=== PATIENT | female | born 1990 | race Caucasian/White ===

== ENCOUNTER 2019-07-20 08:50 | Inpatient (IN) ==
[2019-07-20] MEDS ORDERED: PENICILLIN G POTASSIUM 3 MU in DEXTROSE 5% 100 ML IV PRN (10:04)
[2019-07-20] MEDS ORDERED: OXYTOCIN 30 UNITS/500 ML BAG IV PRN ×3 (10:04→17:41)
[2019-07-20 10:26] LABS: Hematocrit (blood only) 36.2 % (37-47); Hemoglobin 11.8 g/dL (12.0-16.0); Mean Corpuscular Hemoglobin 25.6 pg (25-34); Mean Corpuscular Volume 78.5 fL (80-100); Mean Platelet Volume 9.4 fL (7.4-10.4); Platelet Count 230 K/uL (130-400); RDW Coefficient of Variation 15.9 % (11.5-14.5); RDW Standard Deviation 45.7 fL (36.4-46.3); Red Blood Count 4.61 M/uL (4.2-5.4); White Blood Count 11.22 K/uL (4.8-10.8)
--- NOTE | 2019-07-20 10:28 | History & Physical Report ---
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 of Pre-E, obesity, anxiety Hx. of Pre-eclampsia - currently on ASA 81 mg - no SxS - BP: 118/94 and 129/80 - trace protein in urine - continue to monitor VS and SxS Induction - SVE 4cm/50%/-2 - good movement - category 1 tracing - GBS +, Blood Type A+ - Feels well today. Eating well, voiding well, ambulating well. - Pain well controlled. History of Present Illness Primary Care Provider: Sarbjit Esparza DO Cleo Barillas is presenting after feeling contractions 3-5 minutes apart, and noting bright red blood while wiping. She has had continued bright red blood with wiping but notes that it is a small amount. She brought up that she had lost her mucus plug last week. She denies losing her fluid. She is feeling good movement. She is in the room with her partner Gee who lives at home along with their daughter who is 3. She is planning on . She has a history of Pre-eclampsia that was diagnosed at around 37 weeks gestation. She did no have any headaches, RUQ pain, or vision changes during that . She did have some swelling. She states that she was diagnosed with elevated blood pressure. She takes Venlafaxine for anxiety. The dose was decreased on the Venlafaxine but did not have any problem with this medication change. She feels her anxiety is well controlled. She is feeling good movement. Allergies Allergy/AdvReac Type Severity Reaction Status Date / Time No Known Drug Allergies Allergy Unknown Verified 07/20/19 09:09 Home Medications Home Medications Medication Instructions Recorded Confirmed Type vit no.[id number] 1 tab PO DAILY 07/04/19 07/20/19 History [ Vitamin] venlafaxine 37.5 mg PO DAILY 07/04/19 07/20/19 History aspirin 81 mg tablet,delayed 81 mg PO DAILY 07/11/19 07/20/19 History release Patient History Medical History Skin problem dry skin Vitamin D deficiency Anxiety takes Effexor 37.5mg PO daily History of varicella as a child Hypertension gestational hypertension only Surgical History History of eye surgery muscle surgery to correct S/P wisdom tooth extraction as teenager Social History Preferred Language: Amharic Communication Ability: Effective Breaker Off Required: No Beliefs That Will Affect Care: None marital status: Current Living Situation: Spouse Current Living Situation Comment: lives with and daughter Feels Safe at Home: Yes Safety Concerns: Feels Safe At This Time Smoking Status: Never smoker Second Hand Exposure: No ; Hx Alcohol Use: No Hx Substance Use: No Review of Systems Denies fever, chills, sweats Denies shortness of breath, difficulty breathing, chest pain, palpitations, chest pressure. Denies breast pain. Denies dysuria. Denies headache, RUQ pain, vision changes. Physical Exam Physical Exam: General: Alert, oriented. No acute distress. Cardiac: Regular rate and rhythm, no murmurs/rubs/gallops. Respiratory: Clear to auscultation anterior and posteriorly, no wheezes/rales/rhonchi. No increased work of breathing. Symmetrical chest rise. No respiratory distress. Abdomen: Soft, nontender, nondistended. Bowel sounds present. Lower Extremities: No lower extremity edema or swelling. No deep calf pain. Wendi's negative bilaterally. SVE: 4 cm/ 50%/ -2 Results & Data Vital Signs (Past 12 Hours) Vital Signs Temp Pulse Resp BP 07/20/19 10:02 96 H 143/93 H 07/20/19 09:48 91 H 131/85 07/20/19 09:32 108 H 129/80 07/20/19 09:18 88 129/80 07/20/19 09:01 125 H 118/94 07/20/19 09:00 36.7 C 18 Monitoring External Monitor - Baseline rate: 150 - Variability: moderate - no late deceleration, no variable decelerations - Category 1 tracing Tocodynamometer - contractions q4-5 minutes - approx. 40 MVU's Resident Activity Tracking Resident Involvement: Resident Care Provided Care Provided: OB Delivery
[2019-07-20] MEDS ORDERED: PENICILLIN G POTASSIUM 6 MU in DEXTROSE 5% 250 ML IV ONE (10:30)
[2019-07-20 10:35] LABS: Mean Corpuscular Hgb Conc 32.6 g/dL (32-36)
[2019-07-20] MEDS: LACTATED RINGER'S 1,000 ML IV PRN ×2 (10:46→13:21)
[2019-07-20] MEDS ORDERED: fentaNYL citrate 100 MCG/2 ML VIAL ONE (12:52)
[2019-07-20] MEDS ORDERED: ePHEDrine sulfate 50 MG/ML AMP ONE (12:53)
[2019-07-20] MEDS ORDERED: BUPIVACAINE 0.25% 30 ML VIAL ONE (12:53)
[2019-07-20] MEDS ORDERED: fentaNYL 2MCG/ML ROPIV 1.25MG/ML 100 ML BAG EPI ONE (12:54)
--- NOTE | 2019-07-20 13:27 | Anesthesiology Consultation ---
Date of Service July 20, 2019 Assessment & Plan Chart Review Chart Review: Acceptable Risk for Surgery, Patient NOT seen in Pre Admission Testing and Acceptable Risk for Labor Epidural Consults Requested none ASA ASA3 Proposed Anesthesia Anesthesia Type: General and Labor Epidural Risk / Benefits Reviewed With: PT / POA / Parent / Guardian, Accepts Plan and Informed Consent Obtained History Height/Weight Height: 5 ft 7 in Weight: 122.924 kg Allergies Allergy/AdvReac Type Severity Reaction Status Date / Time No Known Drug Allergies Allergy Unknown Verified 07/20/19 09:09 Medications Home Medications Medication Instructions Recorded Confirmed Last Taken vit no.[id number] 1 tab PO DAILY 07/04/19 07/20/19 07/19/19 08:00 [ Vitamin] venlafaxine 37.5 mg PO DAILY 07/04/19 07/20/19 07/20/19 08:00 aspirin 81 mg tablet,delayed 81 mg PO DAILY 07/11/19 07/20/19 07/19/19 08:00 release Active Medications Generic Name Dose Route Start Last Admin Trade Name Mahesh PRN Reason Stop Dose Admin Lactated Ringer's 1,000 mls @ 125 mls/hr 07/20/19 10:04 07/20/19 13:21 Lr IV 07/22/19 10:03 999 mls/hr .Q8H PRN Administration L&D Protocol Protocol Oxytocin 30 units in 500 mls @ 4 mls/hr 07/20/19 11:48 07/20/19 12:45 Pitocin IV 07/22/19 11:47 0.24 units/hr .Q24H PRN 4 mls/hr Labor Induction/Augmentation Titration Protocol 0.24 UNITS/HR NPO Date Last Intake of Fluids: 07/20/19 Time Last Intake of Fluids: 07:15 Date Last Intake of Solids: 07/20/19 Time Last Intake of Solids: 07:15 Past Medical History Medical History Skin problem dry skin Vitamin D deficiency Anxiety takes Effexor 37.5mg PO daily History of varicella as a child Hypertension gestational hypertension only Exercise / Class Metabolic Activity III < 4 Walking/Shop/Light housework Past Family History Family History Other Diabetes Hypertension Past Surgical History Surgical History History of eye surgery muscle surgery to correct S/P wisdom tooth extraction as teenager Past Anesthesia History No Hx of Anesthesia Complications and No Family Hx of Anesthesia Complications History of PONV No Hx of PONV and No Hx of Motion Sickness Social History Smoking Status: Never smoker Hx Alcohol Use: No Hx Substance Use: No substance use type: does not use Physical Exam Vital Signs Last Vital Signs Temp 36.7 C 07/20/19 11:45 Pulse 88 07/20/19 13:19 Resp 16 07/20/19 11:45 BP 138/104 H 07/20/19 12:41 Pulse Ox 100 07/20/19 13:19 Constitutional + morbidly obese ENMT Mouth: no dentition abnormality Thyromental Distance: < 3.5 Finger Breadths Mallampati Class: II Neck normal visual inspection and trachea midline; neck extension not limited Respiratory normal respiratory effort Auscultation: lungs clear to auscultation bilaterally Cardiovascular Rate/Rhythm: regular rate and regular rhythm Heart Sounds: no murmur Musculoskeletal Spine: lumbar spine normal to inspection; normal cervical ROM Neurologic moves all extremities Motor/Sensory: no sensory deficit Psychiatric Orientation: alert and oriented x 3 Testing Laboratory Results 07/20/19 10:14
[2019-07-20] MEDS ORDERED: NALBUPHINE HCL INJ 10 MG/ML AMP IV PRN (13:51)
[2019-07-20] MEDS ORDERED: DiphenhydrAMINE HCL 50 MG/ML VIAL IV PRN (13:51)
[2019-07-20] MEDS ORDERED: NALOXONE HCL 1 MG in SODIUM CHLORIDE 0.9% 1000ML 1,000 ML IV PRN (13:51)
[2019-07-20] MEDS ORDERED: fentaNYL 2MCG/ML ROPIV 1.25MG/ML 100 ML BAG EPI PRN (13:51)
[2019-07-20] MEDS ORDERED: ONDANSETRON INJ 2 MG/ML 2 ML VIAL IV PRN (13:51)
[2019-07-20] MEDS ORDERED: PROMETHAZINE HCL 25 MG in SODIUM CHLORIDE 0.9% 50 ML IV PRN (13:51)
[2019-07-20] MEDS ORDERED: ePHEDrine sulfate 50 MG/ML AMP IV PRN (13:51)
[2019-07-20] MEDS ORDERED: NALOXONE HCL 0.4 MG/1 ML VIAL/CARP IV PRN (13:51)
--- NOTE | 2019-07-20 15:00 | Obstetrical Progress Note ---
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 of Pre-E in prior , obesity, and anxiety Induction - SVE: 5cm/80%/-2 - AROM at 2:50 PM - good movement - category 1 tracing - GBS +, Blood Type A+ - Feels well today. Eating well, voiding well, ambulating well. - Pain well controlled, epidural in place. Subjective Doing well, no questions or concerns. Membrane was ruptured at 2:50 PM. Mom feels good movement. Physical Exam Physical Exam: General: Alert, oriented. No acute distress. Respiratory: No increased work of breathing. Symmetric chest rise. No re spiratory distress SVE: 5/80/-2 Fetus: - Baseline: 150 BPM - Variability: moderate - no late or variable decelerations - Category 1 tracing Results & Data Vital Signs (Past 12 Hours) Vital Signs Temp Pulse Resp BP Pulse Ox 07/20/19 14:49 96 H 99 07/20/19 14:44 77 99 07/20/19 14:39 93 H 100 07/20/19 14:34 82 98 07/20/19 14:33 86 122/66 07/20/19 14:31 85 127/72 07/20/19 14:29 84 126/70 99 07/20/19 14:27 91 H 124/72 07/20/19 14:25 105 H 128/78 07/20/19 14:24 86 99 07/20/19 14:23 95 H 126/82 07/20/19 14:21 88 126/74 07/20/19 14:19 98 H 127/76 99 07/20/19 14:17 100 H 117/73 07/20/19 14:15 98 H 112/70 07/20/19 14:14 103 H 100 07/20/19 14:13 94 H 110/65 07/20/19 14:11 94 H 116/68 07/20/19 14:09 93 H 116/75 98 07/20/19 14:07 96 H 117/70 07/20/19 14:05 101 H 114/68 07/20/19 14:04 89 98 07/20/19 14:03 93 H 117/63 07/20/19 14:01 101 H 111/68 07/20/19 14:00 99 H 126/71 07/20/19 13:59 101 H 98 07/20/19 13:57 99 H 113/65 07/20/19 13:56 107 H 120/56 L 07/20/19 13:54 95 H 98 07/20/19 13:53 120 H 124/60 07/20/19 13:51 115 H 116/60 07/20/19 13:50 99 H 119/64 07/20/19 13:49 100 H 98 07/20/19 13:47 100 H 124/64 07/20/19 13:45 36.7 C 126/67 07/20/19 13:44 95 H 97 07/20/19 13:39 103 H 99 07/20/19 13:34 103 H 100 07/20/19 13:29 99 H 100 07/20/19 13:24 88 100 07/20/19 13:19 88 100 07/20/19 13:14 83 100 07/20/19 13:09 100 H 99 07/20/19 13:04 93 H 100 07/20/19 12:59 93 H 100 07/20/19 12:54 88 100 07/20/19 12:49 95 H 100 07/20/19 12:47 171 H 82 L 07/20/19 12:41 92 H 138/104 H 07/20/19 11:46 100 H 157/93 H 07/20/19 11:45 36.7 C 16 07/20/19 10:02 96 H 143/93 H 07/20/19 09:48 91 H 131/85 07/20/19 09:32 108 H 129/80 07/20/19 09:18 88 129/80 07/20/19 09:01 125 H 118/94 07/20/19 09:00 36.7 C 18 Resident Activity Tracking Resident Involvement: Resident Care Provided Care Provided: OB Delivery
[2019-07-20] MEDS ORDERED: SUPERCREAM 0.870% 15 GM JAR EXT PRN (17:41)
[2019-07-20] MEDS ORDERED: DIPHTHERIA/TETANUS/PERTUSSIS 0.5 ML SYR/VIAL IM ONE (17:41)
[2019-07-20] MEDS ORDERED: ACETAMINOPHEN 325 MG TAB PO PRN (17:41)
[2019-07-20] MEDS ORDERED: HYDROCORTISONE ACETATE 25 MG SUPP PR PRN (17:41)
[2019-07-20] MEDS ORDERED: BENZOCAINE 20% AER SPR 82.5 GM CAN EXT PRN (17:41)
--- NOTE | 2019-07-20 18:41 | Delivery Summary ---
DATE OF OPERATION: 07/20/2019 PROCEDURE: Normal spontaneous vaginal delivery. SURGEON: Vamshi Horn MD. PREOPERATIVE DIAGNOSES: 1. Single intrauterine at 39 weeks 1 day gestational age. 2. Labor. 3. History of preeclampsia. 4. BMI above 35. 5. GBS positive. POSTOPERATIVE DIAGNOSES: 1. Single intrauterine at 39 weeks 1 day gestational age. 2. Labor. 3. History of preeclampsia. 4. BMI above 35. 5. GBS positive. 6. Status post delivery. ESTIMATED BLOOD LOSS: 100 mL. DRAINS: None. FLUIDS: Continuous lactated ringer. URINE OUTPUT: Not measured. COMPLICATIONS: None. FINDINGS: Viable female infant with weight pending and Apgars of 8 and 9 at 1 and 5 minutes respectively. INDICATIONS: Ms. Barillas is a 29-year-old G4, P1-0-2-1 admitted at 39 weeks 1 day gestational age in early labor. At first evaluation, the patient was found to be 4 cm dilated, 50% effaced, -2 station, lc every 4-5 minutes with moderate intensity. The patient was also noted to have a bulging membranes. After discussion, the patient requested admission for delivery and the patient was admitted in early labor. The patient was allowed to approximately 2 hours for spontaneous labor to ensue at which time she was rechecked and noted to have unchanged cervix and was started on oxytocin per regular protocol. The patient underwent artificial rupture of membranes, shortly thereafter for clear fluid and received an epidural for anesthesia. The patient continued to progress in labor to complete-complete +2 station, at which time she felt the urge to push and pushed over approximately 5-6 contractions to achieve delivery. DESCRIPTION OF PROCEDURE: The patient progressed to 10 cm dilated, 100% effaced, +2 station, pushed over intact perineum with epidural anesthesia and delivered a viable female infant with weight and Apgars as noted above. Head of the delivered in MARU position restituted to left transverse. No nuchal cord was noted. Body and shoulders quickly followed. was noted to be vigorous upon delivery and a 1-minute delayed cord clamping was initiated. The umbilical cord was then double clamped and cut. remained on the maternal abdomen for several minutes and was taken to the warmer for further suctioning. Cord blood was then obtained. Attention was then turned to deliver the placenta, which was then delivered intact, 3-vessel cord, gentle cord traction. On inspection of the perineum, vagina, and cervix, there was noted to be no lacerations. Needle, sponge and instrument counts were correct at the completion of the case. Both mother and were stable in the immediate post-delivery period. I attest to the content of the Intraoperative Record and any orders documented therein. Any exception s are noted below.
--- NOTE | 2019-07-20 19:41 | Anesthesia Procedure Note ---
Date of Service July 20, 2019 Anesthesia Post Epidural Note Vital Signs Vital Signs: Temp Pulse Resp BP Pulse Ox 36.7 C 54 L 18 130/72 98 07/20/19 19:15 07/20/19 19:33 07/20/19 19:15 07/20/19 19:33 07/20/19 17:39 Notes Mental Status: alert / awake / arousable and participated in evaluation Patient Amnestic to Procedure: Yes Nausea / Vomiting: adequately controlled Pain: adequately controlled Airway Patency, RR, SpO2: stable & adequate BP & HR: stable & adequate Hydration State: stable & adequate Anesthetic Complications: no major complications apparent and Pt Satisfied with anesthetic care
[2019-07-20] MEDS: IBUPROFEN 600 MG TAB PO PRN (20:30)
[2019-07-20] MEDS: DOCUSATE SODIUM 100 MG CAP PO SCH (20:36)
[2019-07-21] MEDS: IBUPROFEN 600 MG TAB PO PRN ×3 (04:16→21:15)
--- NOTE | 2019-07-21 06:10 | Obstetrical Progress Note ---
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 of Pre-E in prior , obesity, and anxiety. PPD# 1 - GBS + (abx. given), Blood Type A+ - Feels well today. Eating well, voiding well, ambulating well. - Pain well controlled. - Routine post care - After discharge will have [address] Horn. Supervising Physician Co-Signing Physician Notes Patient seen and evaluated and agree with the above findings and plan. Stable for discharge pending Peds clearing baby Subjective Doing well this morning. Pain is well controlled at a 3/10 and controlled with Motrin. Bleeding is less than a heavy period and improving. Mother was GBS positive with appropriate prophylaxis, but if pediatrics was okay with them going home today they would like to go home today. Review of Systems Review of Systems: Denies fever, chills, sweats Denies shortness of breath, difficulty breathing, chest pain, palpitations, chest pressure. Denies breast pain. Denies dysuria. Denies headache, RUQ pain, vision changes. Physical Exam Physical Exam: General: Alert, oriented. No acute distress. Cardiac: Regular rate and rhythm, no murmurs/rubs/gallops. Respiratory: Clear to auscultation anterior and posteriorly, no wheezes/rales/rhonchi. No increased work of breathing. Symmetrical chest rise. No respiratory distress. Abdomen: Soft, nontender, nondistended. Bowel sounds present. Uterus: Uterine fundus firm, palpable 1 cm below umbilicus. Lower Extremities: No lower extremity edema or swelling. No deep calf pain. Wendi's negative bilaterally. Results & Data Vital Signs (Past 12 Hours) Vital Signs Temp Pulse Pulse Resp BP BP Pulse Ox 07/21/19 03:40 36.4 C L 73 18 116/78 07/20/19 23:20 36.6 C 78 18 111/74 07/20/19 20:15 36.6 C 100 H 20 131/89 98 07/20/19 19:48 88 133/73 07/20/19 19:33 54 L 130/72 07/20/19 19:18 85 131/77 07/20/19 19:15 36.7 C 18 10/18/19 19:04 88 121/61 07/20/19 19:02 90 143/69 H 07/20/19 18:34 83 126/60 07/20/19 18:18 86 135/68 PG Care Time/CCT Total # of Minutes Spent Total Time Spent with Patient: Total time spent is greater than 50% in coordination of care (as documented) at patient's floor/unit and/or counseling patient: Resident Activity Tracking Resident Involvement: Resident Care Provided Care Provided: OB Delivery
[2019-07-21 06:51] LABS: Hematocrit (blood only) 33.1 % (37-47); Hemoglobin 10.3 g/dL (12.0-16.0); Mean Corpuscular Hemoglobin 24.8 pg (25-34); Mean Corpuscular Hgb Conc 31.1 g/dL (32-36); Mean Corpuscular Volume 79.6 fL (80-100); Mean Platelet Volume 9.1 fL (7.4-10.4); Platelet Count 185 K/uL (130-400); RDW Standard Deviation 46.2 fL (36.4-46.3); Red Blood Count 4.16 M/uL (4.2-5.4); White Blood Count 12.35 K/uL (4.8-10.8)
[2019-07-21] MEDS: PRENATAL VITAMIN 1 TAB PO SCH (08:44)
[2019-07-21] MEDS: VENLAFAXINE HCL XR 37.5 MG CAPXR PO SCH (08:45)
[2019-07-21] MEDS: DOCUSATE SODIUM 100 MG CAP PO SCH ×2 (08:45→19:48)
[2019-07-21] MEDS ORDERED: bisacodyL 5 MG TABEC PO SCH (20:00)
[2019-07-22] MEDS: IBUPROFEN 600 MG TAB PO PRN (06:31)
[2019-07-22 06:39] LABS: Hematocrit (blood only) 31.5 % (37-47); Hemoglobin 10.1 g/dL (12.0-16.0)
--- NOTE | 2019-07-22 06:43 | Obstetrical Progress Note ---
Date of Service July 22, 2019 Assessment & Plan (1) Supervision of normal intrauterine in multigravida: ppd#2, ready for discharge; instructions reviewed. Trimester: third trimester Qualified Code(s): Z34.83 - Encounter for supervision of other normal , third trimester Present on Admission?: Yes Subjective Ambulation: ambulating normally Voiding: no voiding problems Passing Gas:: Yes Diet Tolerance:: regular diet Lochia:: Small Feeding Type:: breast feeding Physical Exam Constitutional WD/WN, vitals as above Eyes PERRL, conjunctivae normal, anicteric sclerae Neck normal visual inspection Respiratory normal respiratory effort and able to speak in complete sentences; no respiratory distress and no labored breathing Cardiovascular Rate/Rhythm: regular rate and regular rhythm Extremities: no edema Chest (Breasts) Chest: normal inspection of chest Gastrointestinal (Abdomen) Inspection/Auscultation: abdomen normal to inspection Soft, postgravid Psychiatric A+Ox3, euthymic affect Genitourinary OB Exam Abdomen: + fundal height Fundus: + firm and + relation to umbilicus (fundus just below umbilicus); not tender Results & Data Vital Signs (Past 12 Hours) Vital Signs Temp Pulse Resp BP Pulse Ox 07/21/19 23:25 97.9 F 81 18 118/77 07/21/19 19:45 97.7 F 84 18 129/82 97
[2019-07-22] MEDS: VENLAFAXINE HCL XR 37.5 MG CAPXR PO SCH (08:36)
[2019-07-22] MEDS: DOCUSATE SODIUM 100 MG CAP PO SCH (08:36)
[2019-07-22] MEDS: PRENATAL VITAMIN 1 TAB PO SCH (08:36)
[2019-07-22] MEDS ORDERED: bisacodyL 10 MG SUPP PR PRN (09:00)
== END 2019-07-22 13:35 | disposition home or self-care (01) | DRG 806 ==
LOC: OPB 08:50 → 4S1 08:53 → 4S2 20:05

== ENCOUNTER 2022-05-17 16:05 | Inpatient (IN) ==
[2022-05-17 16:55] LABS: Basophils # (auto) 0.02 K/uL (0-0.2); Basophils % (auto) 0.2 %; Eosinophils # (auto) 0.07 K/uL (0-0.50); Eosinophils % (auto) 0.6 %; Hematocrit (blood only) 34.5 % (34.1-44.9); Hemoglobin 10.9 g/dl (12.0-16.0); Immature Granulocytes # (auto) 0.09 K/uL (0.00-0.02); Immature Granulocytes % (auto) 0.8 %; Lymphocytes # (auto) 1.56 K/uL (1.2-3.4); Lymphocytes % (auto) 14.4 %; Mean Corpuscular Hgb Conc 31.6 g/dL (32.0-36.0); Mean Corpuscular Volume 82.1 fL (80.0-100.0); Mean Platelet Volume 9.5 fL (9.4-12.3); Monocytes # (auto) 0.68 K/uL (0.24-0.82); Monocytes % (auto) 6.3 %; Neutrophils # (auto) 8.42 K/uL (1.4-6.5); Neutrophils % (auto) 77.7 %; Platelet Count 186 K/uL (130-400); RDW Coefficient of Variation 15.5 % (11.5-14.5); RDW Standard Deviation 46.7 fL (36.4-46.3); White Blood Count 10.84 K/ul (4.8-10.8)
[2022-05-17 17:19] LABS: Albumin Globulin Ratio 1.1 (0.9-2); Albumin Level 3.5 gm/dl (3.4-5.0); BUN Creatinine Ratio 11.3 (10-20); Bilirubin,Total 0.4 mg/dl (0.2-1.0); Calcium 9.1 mg/dl (8.5-10.1); Est GFR (African American) 138.3 ml/min; Est GFR (Non-African American) 119.3 ml/min; Globulin 3.1 gm/dl (2.5-4.0); Total Protein 6.6 gm/dl (6.0-8.3)
[2022-05-17 17:33] LABS: Creatinine Urine Random 147.4 mg/dl; Protein Creatinine Ratio Urine 0.4 (0-0.2); Total Protein Urine Random 51.8 mg/dl (0-11.9)
[2022-05-17] MEDS ORDERED: OXYTOCIN 30 UNITS/500 ML BAG IV PRN ×2 (17:39→18:46)
--- NOTE | 2022-05-17 17:42 | History & Physical Report ---
Date of Service May 17, 2022 Assessment & Plan (1) with 38 completed weeks gestation: (2) Preeclampsia: Plan Labs are normal, but pressures have remained in the mild range and protein/school psychologist ratio is 0.4. this is most consistent with preeclampsia without severe features. Since patient is greater than 37 weeks, induction recommended to prevent worsening of disease. Fetus category one. Discussed pitocin for induction. Patient is agreeable. Questions answered. History of Present Illness Chief Complaint: elevated blood pressures in the office Primary Care Provider: Mayra Mulligan DO Patient is a 32yowf with iup at 38 4/7 weeks who presents to labor and delivery from the office with elevated blood pressures. Patient with hx of pet in a previous . Patient notes that she had some floaters in her vision earlier today. Denies griffin/n/v/ruq pain/ increased swelling. Patient notes good fm. Occasional contraction. no lof/vb. Blood pressures under observation have been as high as 154/104. Most of the elevated pressures have been in the mild range. and Delivery Plans Hx preeclampsia in --first asa at 12 weeks Baseline 24hr urine - 357 Obesity (BMI 40 and higher @ beginning of ) *Per [facility] growth US Q 4 wks. *Weekly NSTs @ 34wks *offer Anesthesia consult per [facility] Has had flu vaccine, and covid vaccine x 3. OB Labs: Blood Type A Positive 11/10/21 Antibody Screen NEGATIVE 11/10/21 Hemoglobin 11.7 g/dL (12.0-16.0) L 03/09/22 Hematocrit 36.0 % (37-47) L 03/09/22 Mean Corpuscular Volume 85.0 fL (80-100) 11/10/21 Platelet Count 248 K/uL (130-400) 11/10/21 Rubella IgG Antibody Immune (Immune) 11/10/21 Rapid Plasma Reagin Nonreactive (Nonreactive) 11/10/21 Hepatitis B Surface Antigen Neg (Neg) 11/10/21 Hepatitis C Antibody Neg (Neg) 11/10/21 HIV (1&2) Ab and P24 Ag, 4th Gener Neg (Neg) 11/10/21 Glucose 1 Hour 50 gm Load 93 mg/dl (70-130) 03/09/22 OB Optional Labs: Chlamydia trachomatis RNA 11/10/21 Neisseria gonorrhoeae RNA 11/10/21 Thyroid Stimulating Hormone (TSH) 1.780 uIu/ml (0.300-4.500) 05/12/21 Labs Reviewed: csf/sma-negative--mln cfdna low risk--akh afp declined. gbs negative Allergies Allergy/AdvReac Type Severity Reaction Status Date / Time latex Allergy Mild Rash Verified 05/17/22 17:00 Home Medications Medication Instructions Recorded Confirmed Type prenat.vits,erika,tia-inih-ardtv 1 tab PO DAILY 11/06/21 05/17/22 History aspirin 81 mg tablet,delayed 81 mg PO DAILY 11/26/21 05/17/22 History release omega-3 fatty acids-fish oil 684 1 cap PO DAILY 04/21/22 05/17/22 History mg-1,200 mg capsule,delayed release venlafaxine 37.5 mg 37.5 mg PO DAILY #90 caps 04/22/22 05/17/22 Rx capsule,extended release 24 hr Patient History Medical History Angiomyolipoma of left kidney (2019) MARGA (generalized anxiety disorder) Headache, classical migraine Hypertension gestational hypertension only Obesity Surgical History History of eye surgery x 3, as /child muscle surgery to correct S/P wisdom tooth extraction as teenager Family History Father Hypertension Anxiety Mother Hypertension Anxiety Grandmother (Paternal) Breast cancer Grandmother (Maternal) Breast cancer Grandfather (Maternal) Diabetes Denies family history of Colon cancer Ovarian cancer Prostate cancer Myocardial infarction Social History Smoking Status: Never smoker Second Hand Exposure: No; Do You Dip or Chew Tobacco: No; Tobacco Cessation Education Requested by Patient: No Hx Alcohol Use: No Hx Substance Use: No Preferred Language: Zimbabwean Communication Ability: Effective Visual Impairment: No Limitations Hearing Ability: Normal Spring Layer Required: No Beliefs That Will Affect Care: None marital status: marital status details: Jose [phone]) [phone] Current Living Situation: Spouse Current Living Situation Comment: - Gee; 2 daughters current occupational status: unemployed current occupation: [employer] How many Children do You have: 2 Other Information That Helps Us Care for You: No Feels Safe at Home: Yes Safety Concerns: Feels Safe At This Time Dental Care, Regularly: Yes Physical Activity Frequency: 3-4 Times per Week Seatbelt Use: always Sunscreen Use: Yes Assistive Devices: Glasses OB History Past Pregnancies Del. Date GA wks Lbr Lgth wt Sex Type del Anes Place Del Prov ? Comment 10/03/13 Aborted-Spontaneous 08/29/15 39 5 6/4 F None Other [facility] No Pre-eclampsia at 37 weeks 12/01/17 Aborted-Spontaneous 07/20/19 39 8/12 F Epidura l [facility] [place] No Physical Exam Constitutional: WD/WN, vitals as above Cardiovascular: Extremities: + edema (tr); no calf tenderness Gastrointestinal (Abdomen): obese, soft, nt, gravid Psychiatric: A+Ox3, euthymic affect Genitourinary: cx--3/50/-2/soft/mid toco--justus efm--140s with mod variability, accels to 160s, no decels Results & Data ([facility] Vital Signs (Past 12 Hours) Vital Signs Temp Pulse Resp BP 05/17/22 17:28 90 144/77 H 05/17/22 17:14 80 140/80 05/17/22 16:59 87 158/95 H 05/17/22 16:41 99 H 154/104 H 05/17/22 16:26 86 149/94 H 05/17/22 16:25 37.1 C 18 Coding Level of Care Code None Diagnoses with 38 completed weeks gestation Z3A.38 Preeclampsia O14.90
[2022-05-17] MEDS: LACTATED RINGER'S 1,000 ML IV PRN ×2 (18:07→23:51)
[2022-05-17] MEDS: CALCIUM CARBONATE 500 MG CHEWABLE TAB PO PRN (19:20)
[2022-05-17] MEDS ORDERED: ACETAMINOPHEN 325 MG TAB PO ONE (22:15)
[2022-05-17] MEDS ORDERED: LIDOCAINE 2%/EPINEPHRINE 1:200,000 20 ML SDV ONE (23:34)
[2022-05-17] MEDS ORDERED: ePHEDrine sulfate 50 MG/ML AMP ONE (23:34)
[2022-05-17] MEDS ORDERED: SODIUM CHLORIDE 0.9% INJ 10 ML VIAL ONE (23:34)
[2022-05-17] MEDS ORDERED: fentaNYL citrate 100 MCG/2 ML VIAL ONE (23:34)
[2022-05-17] MEDS ORDERED: BUPIVACAINE 0.25% 30 ML VIAL ONE (23:34)
[2022-05-17] MEDS ORDERED: fentaNYL 2MCG/ML ROPIVACAINE 1.25MG/ML 100 ML BAG EPI ONE (23:35)
[2022-05-18] MEDS ORDERED: fentaNYL 2MCG/ML ROPIVACAINE 1.25MG/ML 100 ML BAG EPI PRN (00:21)
[2022-05-18] MEDS ORDERED: ONDANSETRON INJ 2 MG/ML 2 ML VIAL IV PRN (00:21)
[2022-05-18] MEDS ORDERED: NALOXONE HCL 0.4 MG/1 ML VIAL/CARP IV PRN (00:21)
[2022-05-18] MEDS ORDERED: diphenhydrAMINE 50 MG/ML VIAL IV PRN (00:21)
[2022-05-18] MEDS ORDERED: NALBUPHINE HCL INJ 10 MG/ML AMP IV PRN (00:21)
[2022-05-18] MEDS ORDERED: ePHEDrine sulfate 50 MG/ML AMP IV PRN (00:21)
[2022-05-18] MEDS ORDERED: NALOXONE HCL 1 MG in SODIUM CHLORIDE 0.9% 1000ML 1,000 ML IV PRN (00:21)
--- NOTE | 2022-05-18 00:24 | Anesthesiology Consultation ---
Date of Service May 18, 2022 Assessment & Plan (1) Encounter for pre-operative examination: Chart Review Chart Review: Patient NOT seen in Pre Admission Testing and Acceptable Risk for Labor Epidural Consults Requested none History Height/Weight Height: 5 ft 7 in Weight: 128.82 kg Allergies Allergy/AdvReac Type Severity Reaction Status Date / Time latex Allergy Mild Rash Verified 05/17/22 17:00 Medications Home Medications Medication Instructions Recorded Confirmed Last Taken prenat.vits,erika,mpl-ipsp-sjnsf 1 tab PO DAILY 11/06/21 05/17/22 05/17/22 08:00 aspirin 81 mg tablet,delayed 81 mg PO DAILY 11/26/21 05/17/22 05/17/22 08:00 release omega-3 fatty acids-fish oil 684 1 cap PO DAILY 04/21/22 05/17/22 05/17/22 08:00 mg-1,200 mg capsule,delayed release venlafaxine 37.5 mg 37.5 mg PO DAILY #90 caps 04/22/22 05/17/22 05/17/22 08:00 capsule,extended release 24 hr Active Medications Generic Name Dose Route Start Last Admin Trade Name Freq PRN Reason Stop Dose Admin Calcium Carbonate 500 mg 05/17/22 19:10 05/17/22 19:20 Calcium Carbonate 500 Mg Chewable Tab PO 06/16/22 19:09 500 mg Q4 PRN Administration Indigestion Lactated Ringer's 1,000 mls @ 125 mls/hr 05/17/22 17:39 05/17/22 23:51 Lr IV 05/19/22 17:38 999 mls/hr .Q8H PRN Administration L&D Protocol Protocol Oxytocin 30 units in 500 mls @ 16 mls/hr 05/17/22 18:46 05/17/22 23:15 Pitocin IV 05/19/22 18:45 0.96 units/hr .Q24H PRN 16 mls/hr Labor Induction/Augmentation Titration Protocol 0.96 UNITS/HR Past Medical History Medical History Angiomyolipoma of left kidney (2019) MARGA (generalized anxiety disorder) Headache, classical migraine Hypertension gestational hypertension only Obesity Exercise / Class Metabolic Activity II 4-5 Yardwork/Stairs/Walk up hill Past Family History Family History Father Hypertension Anxiety Mother Hypertension Anxiety Grandmother (Paternal) Breast cancer Grandmother (Maternal) Breast cancer Grandfather (Maternal) Diabetes Denies family history of Colon cancer Ovarian cancer Prostate cancer Myocardial infarction Past Surgical History Surgical History History of eye surgery x 3, as infant/child muscle surgery to correct S/P wisdom tooth extraction as teenager Past Anesthesia History No Hx of Anesthesia Complications and No Family Hx of Anesthesia Complications History of PONV No Hx of PONV and No Hx of Motion Sickness Social History Smoking Status: Never smoker Do You Dip or Chew Tobacco: No Hx Alcohol Use: No Hx Substance Use: No substance use type: does not use Physical Exam Vital Signs Last Vital Signs Temp 37.3 C 05/17/22 22:16 Pulse 89 05/18/22 00:42 Resp 16 05/17/22 22:16 BP 142/91 H 05/18/22 00:13 Pulse Ox 99 05/18/22 00:42 Testing Laboratory Results 05/17/22 16:39 05/17/22 16:39 Blood Type A Positive 05/17/22 16:39 Antibody Screen NEGATIVE 05/17/22 16:39
[2022-05-18] MEDS: LACTATED RINGER'S 1,000 ML IV PRN (01:16)
[2022-05-18] MEDS: CALCIUM CARBONATE 500 MG CHEWABLE TAB PO PRN (01:21)
--- NOTE | 2022-05-18 01:45 | Labor Progress Brief Note ---
Date of Service May 18, 2022 Subjective comfortable after epidural Assessment & Plan (1) Preeclampsia: (2) with 38 completed weeks gestation: Plan arom for clear fluid. fetus category one. continue current management. Admission and Anticipated Discharge Date Admission Date: May 17, 2022 Physical Exam Physical Exam: cx--4/75/-2 toco--q2-4min, pit at 16 efm--120s wtih mod variability, accels to 150s, no decels Results & Data ([facility]) Vital Signs (Past 12 Hours) Vital Signs Temp Pulse Resp BP Pulse Ox Pulse Ox O2 Del Method 05/18/22 01:06 99 Room Air 05/17/22 19:00 37.3 C 16 05/18/22 01:43 81 98 05/18/22 01:37 94 H 98 05/18/22 01:32 83 98 05/18/22 01:29 99 H 134/78 05/18/22 01:27 89 98 05/18/22 01:26 86 137/61 05/18/22 01:24 86 130/61 05/18/22 01:22 93 H 141/67 H 97 05/18/22 01:20 93 H 142/69 H 05/18/22 01:18 85 151/68 H 05/18/22 01:17 89 157/75 H 98 05/18/22 01:15 85 133/61 05/18/22 01:13 98 H 147/69 H 05/18/22 01:12 100 H 99 05/18/22 01:10 90 156/88 H 05/18/22 01:08 90 151/84 H 05/18/22 01:07 89 98 05/18/22 01:06 90 146/85 H 05/18/22 01:04 86 146/77 H 05/18/22 01:02 84 147/82 H 99 05/18/22 01:00 79 154/87 H 05/18/22 00:58 90 155/86 H 05/18/22 00:57 97 H 98 05/18/22 00:56 93 H 144/83 H 05/18/22 00:54 84 153/87 H 05/18/22 00:52 90 150/91 H 98 05/18/22 00:51 83 150/87 H 05/18/22 00:47 96 H 166/100 H 99 05/18/22 00:42 89 99 05/18/22 00:37 86 99 05/18/22 00:32 89 100 05/18/22 00:27 81 99 05/18/22 00:23 84 98 05/18/22 00:18 85 97 05/18/22 00:13 77 05/18/22 00:13 86 142/91 H 98 05/18/22 00:08 86 97 05/18/22 00:03 90 99 05/17/22 23:58 74 140/92 05/17/22 23:57 80 98 05/17/22 23:52 98 H 99 05/17/22 23:48 84 98 05/17/22 23:43 74 05/17/22 23:43 86 140/85 97 05/17/22 23:39 94 H 90 05/17/22 23:37 78 98 05/17/22 23:33 76 98 05/17/22 23:29 90 143/85 H 05/17/22 23:15 75 134/80 05/17/22 22:58 77 131/64 05/17/22 22:44 72 133/66 05/17/22 22:30 82 142/95 H 05/17/22 22:16 16 05/17/22 22:16 37.3 C 16 05/17/22 22:14 73 140/77 05/17/22 22:00 88 137/90 05/17/22 21:44 73 137/67 05/17/22 21:29 70 135/72 05/17/22 21:14 74 139/85 05/17/22 20:58 88 140/83 05/17/22 20:44 72 138/81 05/17/22 20:28 81 144/78 H 05/17/22 20:15 85 140/94 05/17/22 19:59 80 142/88 H 05/17/22 19:44 78 147/87 H 05/17/22 19:28 77 139/93 05/17/22 19:13 81 149/86 H 05/17/22 18:59 82 156/91 H 05/17/22 18:43 85 144/82 H 05/17/22 18:28 80 157/87 H 05/17/22 18:13 90 147/102 H 05/17/22 17:43 86 146/75 H 05/17/22 17:28 90 144/77 H 05/17/22 17:14 80 140/80 05/17/22 16:59 87 158/95 H 05/17/22 16:41 99 H 154/104 H 05/17/22 16:26 86 149/94 H 05/17/22 16:25 37.1 C 18 Coding Level of Care Code None Diagnoses Preeclampsia O14.90 with 38 completed weeks gestation Z3A.38
--- NOTE | 2022-05-18 05:12 | Labor Progress Brief Note ---
Date of Service May 18, 2022 Subjective still comfortable Assessment & Plan (1) with 38 completed weeks gestation: (2) Preeclampsia: Plan continue current management. fetus category one. anticipate . Admission and Anticipated Discharge Date Admission Date: May 17, 2022 Physical Exam Physical Exam: cx--7/80/-2, floppy cx toco--q3-4, pit at 20 efm--130s with mod variability, accels to 160s, no decels Constitutional: WD/WN, vitals as above Results & Data ([facility]) Vital Signs (Past 12 Hours) Vital Signs Temp Pulse Resp BP Pulse Ox Pulse Ox O2 Del Method 05/18/22 01:06 99 Room Air 05/17/22 19:00 37.3 C 16 05/18/22 05:07 78 97 05/18/22 05:02 75 98 05/18/22 05:00 68 135/77 05/18/22 04:57 79 98 05/18/22 04:52 70 97 05/18/22 04:47 69 97 05/18/22 04:46 69 133/73 05/18/22 04:42 71 96 05/18/22 04:37 71 96 05/18/22 04:32 80 97 05/18/22 04:31 73 135/69 05/18/22 04:27 70 96 05/18/22 04:22 73 96 05/18/22 04:17 77 97 05/18/22 04:15 80 138/81 05/18/22 04:12 75 97 05/18/22 04:07 81 99 05/18/22 04:02 75 98 05/18/22 04:01 71 132/75 05/18/22 03:57 78 98 05/18/22 03:52 104 H 96 05/18/22 03:47 98 05/18/22 03:47 79 05/18/22 03:47 89 130/62 05/18/22 03:42 76 98 05/18/22 03:37 75 98 05/18/22 03:32 77 97 05/18/22 03:31 67 135/70 05/18/22 03:27 80 99 05/18/22 03:22 90 100 05/18/22 03:20 18 05/18/22 03:20 37.1 C 18 05/18/22 03:17 81 97 05/18/22 03:15 86 129/69 05/18/22 03:12 79 99 05/18/22 03:07 84 98 05/18/22 03:02 91 H 100 05/18/22 03:00 75 18 140/69 05/18/22 02:59 74 94 05/18/22 02:57 88 97 05/18/22 02:52 78 99 05/18/22 02:47 78 99 05/18/22 02:46 79 133/73 05/18/22 02:42 91 H 100 05/18/22 02:38 81 94 05/18/22 02:37 91 H 100 05/18/22 02:32 77 97 05/18/22 02:33 74 94 05/18/22 02:30 82 126/61 05/18/22 02:27 79 98 05/18/22 02:22 75 98 05/18/22 02:18 75 94 05/18/22 02:17 77 94 05/18/22 02:16 81 131/64 05/18/22 02:12 86 98 05/18/22 02:07 79 99 05/18/22 02:02 72 96 05/18/22 01:59 70 92 05/18/22 02:00 81 120/60 05/18/22 01:57 63 98 05/18/22 01:52 75 95 05/18/22 01:50 74 108/57 L 05/18/22 01:49 68 77/39 L 05/18/22 01:47 88 98 05/18/22 01:43 81 98 05/18/22 01:37 94 H 98 05/18/22 01:32 83 98 05/18/22 01:29 99 H 134/78 05/18/22 01:27 89 98 05/18/22 01:26 86 137/61 05/18/22 01:24 86 130/61 05/18/22 01:22 93 H 141/67 H 97 05/18/22 01:20 93 H 142/69 H 05/18/22 01:18 85 151/68 H 05/18/22 01:17 89 157/75 H 98 05/18/22 01:15 85 133/61 05/18/22 01:13 98 H 147/69 H 05/18/22 01:12 100 H 99 05/18/22 01:10 90 156/88 H 05/18/22 01:08 90 151/84 H 05/18/22 01:07 89 98 05/18/22 01:06 90 146/85 H 05/18/22 01:04 86 146/77 H 05/18/22 01:02 84 147/82 H 99 05/18/22 01:00 79 154/87 H 05/18/22 00:58 90 155/86 H 05/18/22 00:57 97 H 98 05/18/22 00:56 93 H 144/83 H 05/18/22 00:54 84 153/87 H 05/18/22 00:52 90 150/91 H 98 05/18/22 00:51 83 150/87 H 05/18/22 00:47 96 H 166/100 H 99 05/18/22 00:42 89 99 05/18/22 00:37 86 99 05/18/22 00:32 89 100 05/18/22 00:27 81 99 05/18/22 00:23 84 98 05/18/22 00:18 85 97 05/18/22 00:13 77 05/18/22 00:13 86 142/91 H 98 05/18/22 00:08 86 97 05/18/22 00:03 90 99 05/17/22 23:58 74 140/92 05/17/22 23:57 80 98 05/17/22 23:52 98 H 99 05/17/22 23:48 84 98 05/17/22 23:43 74 05/17/22 23:43 86 140/85 97 05/17/22 23:39 94 H 90 05/17/22 23:37 78 98 05/17/22 23:33 76 98 05/17/22 23:29 90 143/85 H 05/17/22 23:15 75 134/80 05/17/22 22:58 77 131/64 05/17/22 22:44 72 133/66 05/17/22 22:30 82 142/95 H 05/17/22 22:16 16 05/17/22 22:16 37.3 C 16 05/17/22 22:14 73 140/77 05/17/22 22:00 88 137/90 05/17/22 21:44 73 137/67 05/17/22 21:29 70 135/72 05/17/22 21:14 74 139/85 05/17/22 20:58 88 140/83 05/17/22 20:44 72 138/81 05/17/22 20:28 81 144/78 H 05/17/22 20:15 85 140/94 05/17/22 19:59 80 142/88 H 05/17/22 19:44 78 147/87 H 05/17/22 19:28 77 139/93 05/17/22 19:13 81 149/86 H 05/17/22 18:59 82 156/91 H 05/17/22 18:43 85 144/82 H 05/17/22 18:28 80 157/87 H 05/17/22 18:13 90 147/102 H 05/17/22 17:43 86 146/75 H 05/17/22 17:28 90 144/77 H 05/17/22 17:14 80 140/80 Coding Level of Care Code None Diagnoses with 38 completed weeks gestation Z3A.38 Preeclampsia O14.90
[2022-05-18] MEDS ORDERED: ACETAMINOPHEN 325 MG TAB PO PRN (06:28)
[2022-05-18] MEDS ORDERED: oxyCODONE/ACETAMINOPHEN 5mg/325mg TAB PO PRN (06:28)
[2022-05-18] MEDS ORDERED: DIPHTHERIA/TETANUS/PERTUSSIS 0.5 ML SYR/VIAL IM ONE (06:28)
[2022-05-18] MEDS ORDERED: OXYTOCIN 30 UNITS/500 ML BAG IV PRN (06:28)
[2022-05-18] MEDS ORDERED: HYDROCORTISONE ACETATE 25 MG SUPP PR PRN (06:28)
[2022-05-18] MEDS ORDERED: BENZOCAINE 20% AER SPR 82.5 GM CAN EXT PRN (06:28)
--- NOTE | 2022-05-18 06:33 | Delivery Summary ---
Vaginal Delivery Summary Date of Service May 18, 2022 Vaginal Delivery Summary [facility] Pre-operative Diagnosis: at 38 4/7 weeks preeclampsia without severe symptoms Post-operative Diagnosis: same Procedure: pitocin induction epidural arom EBL: 300cc Anesthesia: epidural Procedure: The patient presented to labor and delivery with mildly elevated blood pressures and urine p/c ration of 0.4 qualifying for the diagnosis of preeclampsia. She was induced with pitocin, had epidural then arom for clear fluid. She became c/c/+1. The patient pushed for two to deliver a viable female infant in ashvin position. The nose and mouth were bulb suctioned on the perineum and the rest of the infant was then delivered without difficulty through a loose nuchal cord. The baby was initially vigorous with a small cry.. The nose and mouth were again bulb suctioned and the infant was placed in the maternal abdomen for drying and attention. Cord was clamped and cut and handed to awaiting nursing for attention and stumulation. Cord blood obtained. Placenta delivered spontaneous, intact with a three vessel cord. Cervix/sulci/rectum/perineum were intact. Hemostasis obtained with dilute pitocin and fundal massage. Apgars were 7/8. Mother and baby doing well at the end of the delivery. [facility] Vaginal Delivery Charge Delivery Type Details: [facility]
--- NOTE | 2022-05-18 07:29 | Anesthesia Procedure Note ---
Date of Service May 18, 2022 Anesthesia Post Epidural Note Vital Signs Vital Signs: Temp Pulse Resp BP Pulse Ox O2 Del Method 36.9 C 73 18 119/56 L 98 05/18/22 05:25 05/18/22 07:23 05/18/22 05:25 05/18/22 07:23 05/18/22 06:57 05/18/22 01:06 Pain Intensity Lower Abdomen: Pain Intensity: 3 Notes Mental Status: alert / awake / arousable and participated in evaluation Nausea / Vomiting: adequately controlled Pain: adequately controlled Airway Patency, RR, SpO2: stable & adequate BP & HR: stable & adequate Hydration State: stable & adequate Neuraxial Anesthesia: was administered and sensory block is resolving Anesthetic Complications: no major complications apparent and Pt Satisfied with anesthetic care Epidural: Removed without complications and With tip intact
[2022-05-18] MEDS: DOCUSATE SODIUM 100 MG CAP PO SCH ×2 (08:27→20:54)
[2022-05-18] MEDS: IBUPROFEN 600 MG TAB PO PRN ×3 (08:27→20:54)
[2022-05-18] MEDS: PRENATAL VITAMIN 1 TAB PO SCH (08:27)
[2022-05-18] MEDS: VENLAFAXINE HCL XR 37.5 MG CAPXR PO SCH (09:08)
[2022-05-19] MEDS: IBUPROFEN 600 MG TAB PO PRN ×2 (03:26→09:12)
--- NOTE | 2022-05-19 05:35 | Obstetrical Progress Note ---
Date of Service <Kaci Coles DO - Last Filed: 05/19/22 06:49> May 19, 2022 Assessment & Plan <Kaci Coles DO - Last Filed: 05/19/22 06:49> (1) Preeclampsia: (2) with 38 completed weeks gestation: (3) Small for gestational age fetus affecting management of mother: Plan s/p PPD 1: -Vital signs reviewed, this morning had BP of 141/92, Tmax at 37.3 -Hemoglobin reviewed, 10.9 (05/17) -A+, GBS-, rubella immune -Encourage ambulation, monitor and treat pain with motrin PRN, monitor lochia -Continue regular diet -Encourage <Chel Blal MD, FACOG - Last Filed: 05/19/22 07:12> (1) Preeclampsia: (2) with 38 completed weeks gestation: (3) Small for gestational age fetus affecting management of mother: Day #:: 1 Subjective <Kaci Coles DO - Last Filed: 05/19/22 06:49> Mile is a 32 y/o female who is PPD #1 following at 38 5/7 weeks. She has a history of preeclampsia with her first , she was admitted for observation and then IOL on 05/17 for preeclampsia without severe features. Patient was seen and examined at bedside. She reports feeling well overall this morning. Denies any abdominal cramping & pain well managed on analgesics. Voiding without issue, no burning with urination. Tolerating meals overnight and able to ambulate some. Has persistent lochia with some improvement this morning. Currently breast feeding. Denies any headaches. Constitutional: no fever, no chills or no sweats Respiratory: no cough, no dyspnea or no wheezing Cardiovascular: no chest pain, no palpitations or no calf pain Breast: no breast pain Genitourinary (female): no dysuria Neurologic: no headache(s) Physical Exam <Kaci Coles DO - Last Filed: 05/19/22 06:49> Constitutional WD/WN, vitals as above no acute distress Respiratory no respiratory distress Auscultation: lungs clear to auscultation bilaterally; no rales, no rhonchi and no wheezes Cardiovascular RRR, no murmur, no edema Extremities: no calf tenderness and no edema Negative Wendi's sign bilaterally. Gastrointestinal (Abdomen) Inspection/Auscultation: normal bowel sounds Genitourinary Uterine fundus firm, palpable below the umbilicus. Results & Data ([facility]) <Kaci Coles DO - Last Filed: 05/19/22 06:49> Vital Signs (Past 12 Hours) Vital Signs Temp Pulse Resp BP Pulse Ox O2 Del Method 05/19/22 03:00 36.6 C 64 16 141/92 H 97 Room Air 05/18/22 23:30 36.7 C 82 20 133/85 96 Room Air 05/18/22 19:25 36.9 C 72 20 135/84 98 Room Air <Chel Ball MD, FACOG - Last Filed: 05/19/22 07:12> Co-Signing Physician Notes Resident Physician Supervision Note: I was present with Dr. Coles during the history and exam. I discussed the case with the resident and agree with the findings and plan as documented in the note. Any exceptions or clarifications are listed here: stable, doing well, ready to go home. bps noted. instructions reviewed, f/u 6 wk pp check. Documented By: Chel Ball MD, FACOG Resident Activity Tracking <Kaci Coles DO - Last Filed: 05/19/22 06:49> Resident Involvement: Resident Care Provided Care Provided: OB Delivery
[2022-05-19 07:43] LABS: Hematocrit (blood only) 31.3 % (34.1-44.9); Hemoglobin 9.7 g/dl (12.0-16.0)
[2022-05-19] MEDS: VENLAFAXINE HCL XR 37.5 MG CAPXR PO SCH (09:12)
[2022-05-19] MEDS: PRENATAL VITAMIN 1 TAB PO SCH (09:12)
[2022-05-19] MEDS: DOCUSATE SODIUM 100 MG CAP PO SCH (09:12)
[2022-05-19] MEDS ORDERED: bisacodyL 5 MG TABEC PO SCH (20:00)
[2022-05-20] MEDS ORDERED: bisacodyL 10 MG SUPP PR PRN (06:28)
== END 2022-05-19 12:12 | disposition home or self-care (01) | DRG 807 ==
LOC: OPB 16:05 → 4S1 16:06 → 4E2 05-18 09:45
DX: O99.214 Obesity complicating childbirth; Z87.59 Personal history of other complications of pregnancy, childbirth and the puerperium; Z79.899 Other long term (current) drug therapy; Z3A.38 38 weeks gestation of pregnancy; Z82.49 Family history of ischemic heart disease and other diseases of the circulatory system; O14.94 Unspecified pre-eclampsia, complicating childbirth; F41.1 Generalized anxiety disorder; O69.81X0 Labor and delivery complicated by cord around neck, without compression, not applicable or unspecified; Z91.040 Latex allergy status; O99.344 Other mental disorders complicating childbirth; Z79.82 Long term (current) use of aspirin; O36.5930 Maternal care for other known or suspected poor fetal growth, third trimester, not applicable or unspecified; Z37.0 Single live birth